=== PATIENT | male | born 2005 | race Caucasian/White ===

== ENCOUNTER 2023-09-05 22:33 | Emergency (ER) | payer BC, SELFPAY ==
[2023-09-05 22:35] VITALS: BP 141/96
--- NOTE | 2023-09-06 00:26 | ED.GENMED ---
History of Present Illness
General
Chief Complaint: Musculo-Skeletal Complaint
Source: patient
Time Seen by Provider: 09/06/23 00:25
Travel History
Have you had any contact with someone who has COVID-19?: No
Do you have any symptoms of coronavirus? Fever > 100 degrees, chills, cough, shortness of breath, sore throat, loss of taste or smell, muscle aches, or headache?: No
History of Present Illness
History of Present Illness:
18-year-old male presenting to the emergency department for evaluation after twisting his left ankle noting mild to moderate pain and swelling to the lateral aspect of the left ankle. Patient notes multiple sprains in the past. He states tonight
due to his amount of swelling decided to come to the ER to be further evaluated. No other injuries were sustained.
Past History
Past History
ED Past Medical History: None
ED Past Surgical History: Orthopedic
Social History
Tobacco: Non-smoker
Alcohol: None
Drug: None
Personal: Single
Living: with family
Review of Systems
Review of Systems
All Other Systems: ROS reviewed and negative except as documented in HPI and ROS
Phy Exam
Physical Exam
Physical Exam:
GENERAL: Alert , in no apparent distress
EYE: conjunctiva clear
Head: Normocephalic atraumatic
NECK: Supple,
ENT: mmm.
LUNGS: no acute respiratory distress
NEUROLOGICAL: Alert and oriented
SKIN: Warm and dry, skin intact.
MUSCULOSKELETAL: Left lower extremity: Soft tissue swelling to the lateral aspect of the left ankle. Mild tenderness overlying this area. No breaks in the skin. No proximal tib-fib tenderness. No tenderness at the base of the fifth metatarsal.
Easily palpable pedal and tibial pulses. Cap refill less than 2 seconds and sensation is grossly intact to light touch. Calcaneal tendon is intact and without laxity.
PSYCH: Normal and appropriate interaction.
Scores
Heart Failure Risk
Heart Failure Risk Score: Not Applicable
Heart Score for Chest Pain Patients
STEMI patient?: Not applicable
Withdrawal Assessment of Alcohol
Withdrawal Assessment Completed?: Not applicable
Course
Orders/Labs/Results
Orders:
Orders
09/05/23 22:37
Ankle, left 3 view CR [CR Ankle - Left Min 3 Views ] Urgent
Comment:
Reason For Exam: pain
09/06/23 00:30
Pedro Luis Wrap Left-Treatment ONCE
Vital Signs
Initial and Last Documented VS:
Initial Vital Signs
Temp Pulse Resp BP Pulse Ox
98.1 F 89 20 141/96 99
09/05/23 22:35 09/05/23 22:35 09/05/23 22:35 09/05/23 22:35 09/05/23 22:35
Last Documented Vital Signs
Temp Pulse Resp BP Pulse Ox
98.1 F 92 19 153/97 97
09/05/23 22:35 09/06/23 00:33 09/06/23 00:33 09/06/23 00:33 09/06/23 00:33
MDM/Problems Addressed
Differential Diagnosis Includes:
Ankle sprain, fracture, contusion
MDM/Problems Addressed:
18-year-old male presenting emergency department for evaluation of left ankle injury sustained earlier this evening while rolling his ankle. Multiple sprains in the past. X-ray was ordered from triage and on my review does not show any fracture.
Will place an Pedro Luis wrap. Patient has crutches at home. NSAIDs/Tylenol as needed for pain. Stable for discharge and outpatient management.
*Radiology
Radiology exam reviewed: preliminary read by ED provider (No acute fracture)
*Pulse Oximetry
Patient hypoxic: no
*Critical Care Note
Total Time (30-74mins, 75-104mins- exclusive of procedures): Not Applicable
ED Attending Note
-
Portions of this chart may have been created with voice recognition software.� Occasional wrong word or��sound alike� substitutions may have occurred due to the inherent limitations of voice recognition software.
Discharge Plan
Departure
Patient Disposition: Home (Routine Discharge)
Date of Disposition: 09/06/23
Time of Disposition: 00:30
Patient with high blood pressure during this ER visit?: Yes
Discharge Problem:
Left ankle sprain
Instructions: Sprain (DC)
Interventions
Interventions:
*Risk Screen - Suicide Last Done: 09/06/23 00:28
*General Assessment Last Done: 09/05/23 22:35
*Neglect/Abuse Screening Last Done: 09/06/23 00:28
ED- Fall Risk Assessment Last Done: 09/06/23 00:28
*Nursing Disposition Last Done: 09/06/23 00:40
ED-Musculoskeletal Assessment Last Done: 09/06/23 00:28
Discharge Date and Time
Discharge Date/Time: 09/06/23 00:41
Print Language: TUVAL[place]
[2023-09-06 00:33] VITALS: BP 153/97
== END 2023-09-06 00:41 | disposition home or self-care (01) ==
LOC: EMR 22:33
PROVIDERS: EMERGENCY PHYSICIAN Emergency Medicine
DX: S93.402A Sprain of unspecified ligament of left ankle, initial encounter (principal); X50.1XXA Overexertion from prolonged static or awkward postures, initial encounter; R03.0 Elevated blood-pressure reading, without diagnosis of hypertension; Z88.0 Allergy status to penicillin
CPT/HCPCS: 99283; 73610